=== PATIENT | female | born 1965 | race Hispanic/Latino ===

== ENCOUNTER 2019-05-27 15:19 | Emergency (ER) | payer SELFPAY ==
[2019-05-27] MEDS ORDERED: NA CHLORIDE 0.9% 1,000 ML ONE (16:28)
[2019-05-27] MEDS ORDERED: FAMOTIDINE 20 MG/2 ML VIAL IV ONE (16:28)
[2019-05-27] MEDS ORDERED: ONDANSETRON 4 MG/2 ML VIAL ONE (16:28)
[2019-05-27 16:49] LABS: Urine Blood TRACE (NEG); Urine Glucose 2+ (NEG); Urine Protein NEGATIVE (NEG); Urine Specific Gravity 1.025 (1.005-1.030)
[2019-05-27 16:51] LABS: Absolute Lymphocytes (CBC) 2.2 K/uL (0.7-4.9); Basophils % 0.3 % (0-1.3); Hematocrit 45.2 % (36.0-45.0); Lymphocytes % 29.1 % (15.3-44.8); MPV 9.9 fL (7.6-11.3)
[2019-05-27 17:04] LABS: Albumin 3.9 g/dL (3.4-5.0); Bilirubin Direct 0.2 mg/dL (0-0.2); Bilirubin Total 0.4 mg/dL (0.2-1.0); Potassium 4.1 mmol/L (3.5-5.1); Protein, Total 8.5 g/dL (6.4-8.2)
[2019-05-27 17:33] LABS: Urine Bacteria <20 /HPF (<20); Urine Culture Reflex Order NOT NEEDED; Urine RBC <5 /HPF (NONE SEEN)
[2019-05-27] MEDS ORDERED: INSULIN -REGULAR HUMAN 50 UNIT/0.5 ML ML ONE (17:59)
--- NOTE | 2019-05-27 18:02 | RAD REPORT ---
EXAM DESCRIPTION: CT - Stone Protocol - 05/27/2019 5:45 pm CLINICAL HISTORY: Abdominal pain. COMPARISON: None. TECHNIQUE: Computed axial tomography of the abdomen pelvis was obtained without oral or IV contrast. Lack of IV and oral contrast limits evaluation of solid organs, bowel, and vessels. Coronal reformat sudheer images were obtained and reviewed. All CT scans are performed using dose optimization technique as appropriate and may include automated exposure control or mA/KV adjustment according to patient size. FINDINGS: 1 millimeter right renal calculus. No hydronephrosis. No left renal calculus. An ureteral calculus is not noted. A bladder calculus is not present. Fatty liver. Mild hepatomegaly Spleen, pancreas and adrenals appear grossly normal There is no evidence of diverticulitis. Increased density in the appendix either represents contrast or appendicolith. The appendix is normal sized. No stranding within the adjacent fat Small umbilical hernia contains fat. Marked spondylosis L5-S1 Moderate amount of stool within the colon IMPRESSION: 1 millimeter nonobstructing right renal calculus Fatty liver. Mild hepatomegaly
--- NOTE | 2019-05-27 19:10 | ER ---
Nurse's Notes [facility] Name: Sonya Ames Age: 53 yrs Sex: Female : 1965 Arrival Date: 05/27/2019 Time: 15:22 Bed 19 Private MD: Diagnosis: Upper abdominal pain, unspecified;Hyperglycemia, unspecified Presentation: 05/27 15:32 Presenting complaint: Patient states: I have a hernia and I am having a lot of pain la1 that has been causing me a lot of pain for the last four weeks and I went to the clinic and my BGL was high. Transition of care: patient was not received from another setting of care. Onset of symptoms was May 27, 2019. Risk Assessment: Do you want to hurt yourself or someone else? Patient reports no desire to harm self or others. Initial Sepsis Screen: Does the patient meet any 2 criteria? No. Patient's initial sepsis screen is negative. Does the patient have a suspected source of infection? No. Patient's initial sepsis screen is negative. Care prior to arrival: None. 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 - wh Historical: - Allergies: 15:36 Codeine; la1 15:36 Vicodin; la1 15:36 tramadol; la1 - Home Meds: 15:39 metformin 1,000 mg Oral tab 1 tab 2 times per day [Active]; atorvastatin 20 mg oral tab la1 1 tab once daily [Active]; clonazepam 0.5 mg Oral tab 1 tab 3 times per day [Active]; dicyclomine 20 mg Oral tab 1 tab [Active]; Invokamet 50-500 mg oral tab 1 tab 2 times per day [Active]; lisinopril-hydrochlorothiazide 20-12.5 mg oral tab 1 tab once daily [Active]; meloxicam 15 mg oral tab 1 tab once daily [Active]; meloxicam 15 mg oral tab 1 tab once daily [Active]; metoclopramide HCl 5 mg Oral tab 1 tab once daily [Active]; omeprazole 20 mg Oral cpDR 1 cap once daily [Active]; Zofran (as hydrochloride) 4 mg Oral tab 1 tabs [Active]; piroxicam 20 mg Oral cap 1 cap once daily [Active]; doxepin 25 mg Oral cap 1 cap once daily [Active]; sucralfate 1 gram Oral tab 1 tab 4 times per day [Active]; - PMHx: 15:36 Diabetes - NIDDM; Hypertension; Hyperlipidemia; Migraines; la1 - Immunization history:: Adult Immunizations up to date. - Social history:: Smoking status: Patient/guardian denies using tobacco. - Ebola Screening: : No symptoms or risks identified at this time. Screenin:30 Abuse screen: Denies threats or abuse. Denies injuries from another. Nutritional wh screening: No deficits noted. Tuberculosis screening: No symptoms or risk factors identified. Fall Risk None identified. Assessment: 16:30 General: Appears in no apparent distress. uncomfortable, Behavior is calm, cooperative, wh appropriate for age. Pain: Complains of pain in epigastric area, right upper quadrant and left upper quadrant Pain does not radiate. Pain currently is 5 out of 10 on a pain scale. Quality of pain is described as aching. Neuro: Level of Consciousness is awake, alert, obeys commands, Oriented to person, place, time, situation, Appropriate for age. Cardiovascular: Heart tones S1 S2. Respiratory: Airway is patent Respiratory effort is even, unlabored, Respiratory pattern is regular, symmetrical, Breath sounds are clear bilaterally. GI: Abdomen is flat, non-distended, Bowel sounds present X 4 quads. Abd is soft Reports upper abdominal pain, nausea. : No signs and/or symptoms were reported regarding the genitourinary system. EENT: No signs and/or symptoms were reported regarding the EENT system. Derm: Skin is intact, is healthy with good turgor, Skin is pink, warm \T\ dry. normal. Musculoskeletal: Range of motion: intact in all extremities. 17:41 Reassessment: Patient appears in no apparent distress at this time. No changes from previously documented assessment. Patient and/or family updated on plan of care and expected duration. Pain level reassessed. Patient is alert, oriented x 3, equal unlabored respirations, skin warm/dry/pink. 18:35 Reassessment: Patient appears in no apparent distress at this time. No changes from previously documented assessment. Patient and/or family updated on plan of care and expected duration. Pain level reassessed. Patient is alert, oriented x 3, equal unlabored respirations, skin warm/dry/pink. Patient denies pain at this time. Patient states feeling better. 19:57 Reassessment: Patient appears in no apparent distress at this time. No changes from previously documented assessment. Patient and/or family updated on plan of care and expected duration. Pain level reassessed. Patient is alert, oriented x 3, equal unlabored respirations, skin warm/dry/pink. Patient denies pain at this time. Patient states feeling better. Vital Signs: 15:34 BP 146 / 88; Pulse 116; Resp 20; Temp 97.4; Pulse Ox 98% on R/A; Weight 85.73 kg; la1 Height 5 ft. 4 in. (162.56 cm); 17:00 BP 123 / 66; Pulse 93; Resp 16; Pulse Ox 99% on R/A; wh 18:00 BP 112 / 71; Pulse 90; Resp 18; Pulse Ox 99% on R/A; wh 19:00 BP 116 / 73; Pulse 97; Temp 18; Pulse Ox 91% ; wh 15:34 Body Mass Index 32.44 (85.73 kg, 162.56 cm) la1 ED Course: 15:22 Patient arrived in ED. rg4 15:30 Nels[facility] Edgar [facility]C [facility]. kb 15:30 Navdeep Arita MD is Attending Physician. kb 15:32 Triage completed. la1 15:33 Arm band placed on left wrist. la1 16:06 James Montes is Primary Nurse. wh 16:30 Inserted saline lock: 20 gauge in left antecubital area, using aseptic technique. Blood wh collected. 17:[address] via wheelchair. vm2 17:45 CT Stone Protocol In Process Unspecified. EDMS 19:59 Patient has correct armband on for positive identification. Placed in gown. Bed in low wh position. Call light in reach. Side rails up X 1. Pulse ox on. NIBP on. 20:00 No provider procedures requiring assistance completed. IV discontinued, intact, wh bleeding controlled, No redness/swelling at site. Administered Medications: 16:33 Drug: Zofran 4 mg Route: IVP; Site: right antecubital; 20:02 Follow up: Response: No adverse reaction 16:34 Drug: NS 0.9% 1000 ml Route: IV; Rate: 1000 ml; Site: right antecubital; 20:01 Follow up: IV Status: Completed infusion 16:34 Drug: Pepcid 20 mg Route: IVP; Site: right antecubital; 20:01 Follow up: Response: No adverse reaction 18:03 Drug: Insulin Regular Human 10 units {Co-Signature: rb1 (Melissa Tse RN).} Route: IVP; Site: right antecubital; 20:02 Follow up: Response: No adverse reaction Point of Care Testing: Blood Glucose: 15:36 Blood Glucose: 415 mg/dL; la1 19:00 Blood Glucose: 258 mg/dL; Ranges: Outcome: 19:08 Discharge ordered by . kb 20:00 Discharged to home ambulatory. 20:00 Condition: good 20:00 Condition: good 20:00 Discharge instructions given to patient, Instructed on discharge instructions, follow up and referral plans. medication usage, POC ABD Pain, Hyperglycemia Demonstrated understanding of instructions, follow-up care, medications, POC Prescriptions given X 2. 20:05 Patient left the ED. Signatures: Dispatcher [employer] EDMS Nelsy Edgar, FINANCE INTERN-C FINANCE INTERN-Mukesh Cedillo RN RN la1 Poly Langston rg4 Erlinda Rosario 2 James Montes Melissa Tse RN rb1 Corrections: (The following items were deleted from the chart) 15:33 15:32 Presenting complaint: Patient states: I have a hernia and I am having a lot of la1 pain and I went to the clinic and my BGL was high la1 19:59 16:30 GI: Abdomen is flat, non-distended, Bowel sounds present X 4 quads. Abd is soft wh and non tender X 4 quads. Reports upper abdominal pain, nausea, wh
--- NOTE | 2019-05-27 19:11 | EDPHYS ---
Physician Documentation [facility] Name: Sonya Ames Age: 53 yrs Sex: Female : 1965 Arrival Date: 05/27/2019 Time: 15: Bed 19 Private MD: ED Physician Navdeep Arita HPI: 05/27 16:07 This 53 yrs old Female presents to ER via Ambulatory with complaints of kb Abdominal Pain, High Blood Sugar. 16:07 The patient presents with abdominal pain in the upper abdomen. Onset: The kb symptoms/episode began/occurred 4 week(s) ago. The symptoms do not radiate. Associated signs and symptoms: Pertinent positives: vaginal discharge, vaginal itching, hernia, GERD. The symptoms are described as constant. Modifying factors: The symptoms are alleviated by nothing, the symptoms are aggravated by nothing. Severity of pain: At its worst the pain was mild moderate in the emergency department the pain is unchanged. The patient has experienced similar episodes in the past. The patient has not recently seen a physician. Pt reports she has had a hiatal hernia for 3 years and it causes pain and GERD occasionally, usually lasting about 2 weeks. This time it has lasted 4 weeks. Also reports high blood sugar for a long time, that she has not been able to control with diet. Reports she takes her metformin as prescribed. Pt went to the clinic in [place] today for these complaints, and also she needs a refill of clonazapam, and they sent her to the ER via EMS because of her high blood sugar. 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 - wh Historical: - Allergies: 15:36 Codeine; la1 15:36 Vicodin; la1 15:36 tramadol; la1 - Home Meds: 15:39 metformin 1,000 mg Oral tab 1 tab 2 times per day [Active]; atorvastatin 20 mg oral tab la1 1 tab once daily [Active]; clonazepam 0.5 mg Oral tab 1 tab 3 times per day [Active]; dicyclomine 20 mg Oral tab 1 tab [Active]; Invokamet 50-500 mg oral tab 1 tab 2 times per day [Active]; lisinopril-hydrochlorothiazide 20-12.5 mg oral tab 1 tab once daily [Active]; meloxicam 15 mg oral tab 1 tab once daily [Active]; meloxicam 15 mg oral tab 1 tab once daily [Active]; metoclopramide HCl 5 mg Oral tab 1 tab once daily [Active]; omeprazole 20 mg Oral cpDR 1 cap once daily [Active]; Zofran (as hydrochloride) 4 mg Oral tab 1 tabs [Active]; piroxicam 20 mg Oral cap 1 cap once daily [Active]; doxepin 25 mg Oral cap 1 cap once daily [Active]; sucralfate 1 gram Oral tab 1 tab 4 times per day [Active]; - PMHx: 15:36 Diabetes - NIDDM; Hypertension; Hyperlipidemia; Migraines; la1 - Immunization history:: Adult Immunizations up to date. - Social history:: Smoking status: Patient/guardian denies using tobacco. - Ebola Screening: : No symptoms or risks identified at this time. ROS: 16:07 Constitutional: Negative for fever, chills, and weight loss, ENT: Negative for injury, kb pain, and discharge, Neck: Negative for injury, pain, and swelling, Cardiovascular: Negative for chest pain, palpitations, and edema, Respiratory: Negative for shortness of breath, cough, wheezing, and pleuritic chest pain, Back: Negative for injury and pain, MS/Extremity: Negative for injury and deformity, Skin: Negative for injury, rash, and discoloration, Neuro: Negative for headache, weakness, numbness, tingling, and seizure. 16:07 Abdomen/GI: Positive for abdominal pain. 16:07 : Positive for vaginal discharge, vaginal itching. Exam: 16:07 Constitutional: This is a well developed, well nourished patient who is awake, alert, kb and in no acute distress. Head/Face: Normocephalic, atraumatic. ENT: Nares patent. No nasal discharge, no septal abnormalities noted. Tympanic membranes are normal and external auditory canals are clear. Oropharynx with no redness, swelling, or masses, exudates, or evidence of obstruction, uvula midline. Mucous membranes moist. Neck: Trachea midline, no thyromegaly or masses palpated, and no cervical lymphadenopathy. Supple, full range of motion without nuchal rigidity, or vertebral point tenderness. No Meningismus. Chest/axilla: Normal chest wall appearance and motion. Nontender with no deformity. No lesions are appreciated. Cardiovascular: Regular rate and rhythm with a normal S1 and S2. No gallops, murmurs, or rubs. Normal PMI, no JVD. No pulse deficits. Respiratory: Lungs have equal breath sounds bilaterally, clear to auscultation and percussion. No rales, rhonchi or wheezes noted. No increased work of breathing, no retractions or nasal flaring. Back: No spinal tenderness. No costovertebral tenderness. Full range of motion. Skin: Warm, dry with normal turgor. Normal color with no rashes, no lesions, and no evidence of cellulitis. MS/ Extremity: Pulses equal, no cyanosis. Neurovascular intact. Full, normal range of motion. Neuro: Awake and alert, GCS 15, oriented to person, place, time, and situation. Cranial nerves II-XII grossly intact. Motor strength 5/5 in all extremities. Sensory grossly intact. Cerebellar exam normal. Normal gait. Vital Signs: 15:34 BP 146 / 88; Pulse 116; Resp 20; Temp 97.4; Pulse Ox 98% on R/A; Weight 85.73 kg; la1 Height 5 ft. 4 in. (162.56 cm); 17:00 BP 123 / 66; Pulse 93; Resp 16; Pulse Ox 99% on R/A; wh 18:00 BP 112 / 71; Pulse 90; Resp 18; Pulse Ox 99% on R/A; wh 19:00 BP 116 / 73; Pulse 97; Temp 18; Pulse Ox 91% ; wh 15:34 Body Mass Index 32.44 (85.73 kg, 162.56 cm) la1 MDM: 15:40 Patient medically screened. kb 16:07 Data reviewed: vital signs, nurses notes. Data interpreted: Pulse oximetry: on room air kb is 98 %. Interpretation: normal. 18:59 Counseling: I had a detailed discussion with the patient and/or guardian regarding: the kb historical points, exam findings, and any diagnostic results supporting the discharge/admit diagnosis, lab results, radiology results, the need for outpatient follow up, a family practitioner, to return to the emergency department if symptoms worsen or persist or if there are any questions or concerns that arise at home. 05/27 15:42 Order name: Basic Metabolic Panel; Complete Time: 17:08 kb 05/27 15:42 Order name: CBC with Diff; Complete Time: 17:08 kb 05/27 15:42 Order name: Hepatic Function; Complete Time: 17:08 kb 05/27 15:42 Order name: Lipase; Complete Time: 17:08 kb 05/27 15:42 Order name: Urine Microscopic Only; Complete Time: 17:36 kb 05/27 16:28 Order name: Urine Dipstick--Ancillary (enter results); Complete Time: 16:51 eb 05/27 15:42 Order name: IV Saline Lock; Complete Time: 16:26 kb 05/27 15:42 Order name: Labs collected and sent; Complete Time: 16:26 kb 05/27 17:19 Order name: CT Stone Protocol; Complete Time: 18:11 kb 05/27 19:01 Order name: Glucose, Ancillary Testing; Complete Time: 19:02 EDMS 05/27 15:42 Order name: Urine Dipstick-Ancillary (obtain specimen); Complete Time: 16:26 kb Administered Medications: 16:33 Drug: Zofran 4 mg Route: IVP; Site: right antecubital; 20:02 Follow up: Response: No adverse reaction 16:34 Drug: NS 0.9% 1000 ml Route: IV; Rate: 1000 ml; Site: right antecubital; 20:01 Follow up: IV Status: Completed infusion 16:34 Drug: Pepcid 20 mg Route: IVP; Site: right antecubital; 20:01 Follow up: Response: No adverse reaction 18:03 Drug: Insulin Regular Human 10 units {Co-Signature: rb1 (Melissa Tse RN).} Route: IVP; Site: right antecubital; 20:02 Follow up: Response: No adverse reaction Point of Care Testing: Blood Glucose: 15:36 Blood Glucose: 415 mg/dL; la1 19:00 Blood Glucose: 258 mg/dL; Ranges: Critical Glucose Levels:Adult <50 mg/dl or >400 mg/dl <40 mg/dl or >180 mg/dl Disposition: 05/28 08:24 Co-signature as Attending Physician, Navdeep Arita MD I agree with the assessment and igor plan of care. Disposition: 05/27/19 19:08 Discharged to Home. Impression: Upper abdominal pain, unspecified, Hyperglycemia, unspecified. - Condition is Stable. - Discharge Instructions: Abdominal Pain, Adult, [id number], Hyperglycemia, [id number]. - Prescriptions for Bentyl 20 mg Oral Tablet - take 1 tablet by ORAL route every 6 hours As needed; 20 tablet. Pepcid 20 mg Oral Tablet - take 1 tablet by ORAL route once daily for 10 days; 10 tablet. - Medication Reconciliation Form, Thank You Letter, Antibiotic Education, Prescription Opioid Use form. - Follow up: Emergency Department; When: As needed; Reason: Worsening of condition. Follow up: Private Physician; When: 2 - 3 days; Reason: Recheck today's complaints, Continuance of care, Re-evaluation by your physician. Signatures: Dispatcher [employer] EDMS Nelsy Edgar, IMAGING SCIENCE PROFESSOR-C IMAGING SCIENCE PROFESSOR-Navdeep Rowan MD MD cha Attema, Lee, RN RN James Ivory Melissa Tse RN [facility] Corrections: (The following items were deleted from the chart) 05/27 20:05 19:08 05/27/2019 19:08 Discharged to Home. Impression: Upper abdominal pain, wh unspecified; Hyperglycemia, unspecified. Condition is Stable. Forms are Medication Reconciliation Form, Thank You Letter, Antibiotic Education, Prescription Opioid Use. Follow up: Emergency Department; When: As needed; Reason: Worsening of condition. Follow up: Private Physician; When: 2 - 3 days; Reason: Recheck today's complaints, Continuance of care, Re-evaluation by your physician. kb
== END 2019-05-27 20:05 | disposition home or self-care (01) ==
LOC: ER 15:19
DX: E11.65 Type 2 diabetes mellitus with hyperglycemia (principal); I10 Essential (primary) hypertension; E78.5 Hyperlipidemia, unspecified; Z88.5 Allergy status to narcotic agent
CPT/HCPCS: 36415; 74176; 76377; 80048; 80076; 81003; 81015; 82962; 83690; 85025; 96361; 96374; 96375; 99284; J2405; J7030

== ENCOUNTER 2021-09-11 08:23 | Inpatient (IN) | payer OTHER, SELFPAY ==
--- OUTSIDE RECORDS SUMMARY | 2021-09-11 08:26 | XMS REPORT | Continuity of Care Document ---
:1965 Author Organization [facility] t Address [address] [place] [address] Dr. Esquivel [address] [place] [address] Care Team Providers Name Role Phone Doctor Unassigned, Name Attending Clinician Unavailable Problems This patient has no known problems. Allergies, Adverse Reactions, Alerts Allergy Allergy Status Severity Reaction(s) Onset Inactive Treating Comm ents Source Name Type Date Date Clinician Jun Stern Active Unknown - 2014-10 Univ ers ty to See comments 11-13 ity of adverse 00:00: [place] reaction 00 [facility] Hydrocod Propensi Active 2014-10 Uni vers one ty to See comments 11-13 ity of adverse 00:00: [place] reaction 00 [facility] Penicill Propensi Active Unknown 2014-10 Uni vers ins ty to See comments 2 ity of adverse 00:00: [place] reaction 00 [facility] Social History Social Habit Start Date Stop Date Quantity Comments Source Sex Assigned At Uni versity [facility] Smoking Status Start Date Stop Date Source Unknown if ever smoked [facility] Medications Ordered Filled Start Stop Current Ordering Indication Dosage Frequency Signature Comments Components Source Medication Medication Date Date Medication? Clinician (SIG) Name Name paroxetine Yes TAKE ONE Uni vers (PAXIL) 10 8-10 TABLET BY ity of [place] 00:[place] [facility] Procedures Procedure Date / Time Performed Performing Clinician Nubia e EXTERNAL PROVIDER 2019-06-08 05:01:00 Doctor Unassigned, No [facility] [place] RECORDS Name Medical Branch Encounters Start End Encounter Admission Attending Care Care Encounter Source Date/Time Date/Time Type Type Clinicians Facility Department ID 2020-05-17 2020-05-17 Outpatient [facility] [id number] [place] 00:00:00 00:00:00 Health 2020-04-12 2020-04-12 Outpatient [facility] [id number] [place] 00:00:00 00:00:00 Health 2020-01-26 2020-01-26 Outpatient [facility] [id number] [place] 00:00:00 00:00:00 Health 2019-11-16 2019-11-16 Outpatient [facility] [id number] [place] 07:27:33 07:27:33 Health 2019-11-10 2019-11-10 Outpatient [facility] [id number] [place] 00:00:00 00:00:00 Health 2019-10-29 2019-10-29 Outpatient [facility] [id number] [place] 07:36:58 07:36:58 Health 2019-10-29 2019-10-29 Outpatient [facility] [id number] [place] 00:00:00 00:00:00 Health 2019-10-29 2019-10-29 Outpatient [facility] [id number] [place] 00:00:00 00:00:00 Health 2019-10-27 2019-10-27 Outpatient [facility] [id number] [place] 00:00:00 00:00:00 [facility] 2019-10-20 2019-10-20 Outpatient [facility] [id number] [place] 00:00:00 00:00:00 [facility] 2019-09-22 2019-09-22 Outpatient [facility] [id number] [place] 09:01:21 09:01:21 [facility] 2019-06-22 2019-06-22 Outpatient [facility] [id number] [place] 00:00:00 00:00:00 [facility] 2019-06-10 2019-06-10 Outpatient [facility] [id number] [place] 00:00:00 00:00:00 [facility] 2019-06-08 2019-06-08 Orders Doctor PAULINE [id number] Univers 00:00:00 00:00:00 Only Unassigned, MILAGROS [id number] ity of [place] [facility] [id number] [place] as [id number] [facility] 009 Branch 2019-06-07 2019-06-07 Outpatient [facility] [id number] [place] 00:00:00 00:00:00 [facility] 2019-06-03 2019-06-03 Outpatient [facility] [id number] [place] 00:00:00 00:00:00 [facility] 2019-06-03 2019-06-03 Outpatient [facility] [id number] [place] 00:00:00 00:00:00 Health 2019-05-26 2019-05-26 Outpatient [facility] [id number] [place] 00:00:00 00:00:00 [facility] 2019-05-24 2019-05-24 Outpatient [facility] [id number] [place] 00:00:00 00:00:00 [facility] 2019-05-21 2019-05-21 Outpatient [facility] [id number] [place] 14:40:19 14:40:19 [facility] 2019-05-21 2019-05-21 Outpatient [facility] [id number] [place] 00:00:00 00:00:00 [facility] 2019-05-21 2019-05-21 Outpatient [facility] [id number] [place] 00:00:00 00:00:00 [facility] 2019-05-21 2019-05-21 Outpatient [facility] [id number] [place] 00:00:00 00:00:00 [facility] 2019-05-21 2019-05-21 Outpatient [facility] [id number] [place] 00:00:00 00:00:00 [facility] 2019-05-20 2019-05-20 Outpatient [facility] [id number] [place] 15:33:18 15:33:18 [facility] 2019-05-20 2019-05-20 Outpatient [facility] [id number] [place] 14:24:58 14:24:58 [facility] 2019-05-20 2019-05-20 Outpatient [facility] [id number] [place] 14:02:09 14:02:09 [facility] 2019-05-20 2019-05-20 Outpatient [facility] [id number] [place] 00:00:00 00:00:00 [facility] 2019-05-20 2019-05-20 Outpatient [facility] [id number] [place] 00:00:00 00:00:00 [facility] 2019-05-19 2019-05-19 Outpatient [facility] [id number] [place] 00:00:00 00:00:00 [facility] 2019-05-19 2019-05-19 Outpatient [facility] [id number] [place] 00:00:00 00:00:00 [facility] 2019-05-13 2019-05-13 Outpatient [facility] [id number] [place] 15:04:47 15:04:47 [facility] 2019-05-06 2019-05-06 Outpatient [facility] [id number] [place] 00:00:00 00:00:00 [facility] 2019-05-05 2019-05-05 Outpatient [facility] [id number] [place] 09:22:40 09:22:40 [facility] 2019-05-03 2019-05-03 Emergency [facility] [id number] [place] 01:42:35 01:42:35 [facility] 2019-05-02 2019-05-02 Emergency [facility] [id number] [place] 19:52:20 19:52:20 [facility] 2019-04-19 2019-04-19 Outpatient [facility] [id number] [place] 12:49:16 12:49:16 [facility] 2019-04-19 2019-04-19 Outpatient [facility] [id number] [place] 12:09:45 12:09:45 [facility] 2019-04-19 2019-04-19 Outpatient [facility] [id number] [place] 11:18:49 11:18:49 [facility] 2019-04-19 2019-04-19 Outpatient [facility] [id number] [place] 10:14:27 10:14:27 [facility] 2019-04-19 2019-04-19 Outpatient [facility] [id number] [place] 00:00:00 00:00:00 [facility] 2019-04-19 2019-04-19 Outpatient [facility] [id number] [place] 00:00:00 00:00:00 [facility] 2018-06-22 2018-06-22 Outpatient [facility] [id number] [place] 00:00:00 00:00:00 [facility] 2018-06-22 2018-06-22 Outpatient [facility] [id number] [place] 00:00:00 00:00:00 [facility] 2018-06-19 2018-06-19 Outpatient [facility] [id number] [place] 13:03:23 13:03:23 [facility] 2018-06-19 2018-06-19 Outpatient [facility] [id number] [place] 00:00:00 00:00:00 [facility] 2018-06-19 2018-06-19 Outpatient [facility] [id number] [place] 00:00:00 00:00:00 [facility] 2018-06-11 2018-06-11 Outpatient [facility] [id number] [place] 00:00:00 00:00:00 [facility] 2018-06-10 2018-06-10 Outpatient [facility] [id number] [place] 00:00:00 00:00:00 [facility] 2018-06-10 2018-06-10 Outpatient [facility] [id number] [place] 00:00:00 00:00:00 [facility] 2018-06-08 2018-06-08 Outpatient [facility] [id number] [place] 00:00:00 00:00:00 [facility] 2018-06-05 2018-06-05 Outpatient [facility] [id number] [place] 11:52:24 11:52:24 [facility] 2018-06-05 2018-06-05 Outpatient [facility] [id number] [place] 11:36:28 11:36:28 [facility] 2018-06-05 2018-06-05 Outpatient [facility] [id number] [place] 11:16:17 11:16:17 [facility] 2018-06-05 2018-06-05 Outpatient [facility] [id number] [place] 10:37:43 10:37:43 [facility] 2018-06-05 2018-06-05 Outpatient [facility] [id number] [place] 08:49:22 08:49:22 [facility] 2018-06-05 2018-06-05 Outpatient [facility] [id number] [place] 00:00:00 00:00:00 [facility] 2018-05-20 2018-05-20 Outpatient [facility] [id number] [place] 00:00:00 00:00:00 [facility] 2018-05-13 2018-05-13 Outpatient [facility] [id number] [place] 00:00:00 00:00:00 [facility] 2018-05-13 2018-05-13 Outpatient [facility] [id number] [place] 00:00:00 00:00:00 [facility] 2018-05-13 2018-05-13 Outpatient [facility] [id number] [place] 00:00:00 00:00:00 [facility] 2018-05-13 2018-05-13 Outpatient [facility] [id number] [place] 00:00:00 00:00:00 [facility] 2018-05-13 2018-05-13 Outpatient [facility] [id number] [place] 00:00:00 00:00:00 [facility] 2018-04-22 2018-04-22 Outpatient [facility] [id number] [place] 12:31:20 12:31:20 [facility] 2018-04-22 2018-04-22 Outpatient [facility] [id number] [place] 10:45:31 10:45:31 [facility] 2018-04-22 2018-04-22 Outpatient [facility] [id number] [place] 00:00:00 00:00:00 [facility] 2017-09-29 2017-09-29 Outpatient [facility] [id number] [place] 00:00:00 00:00:00 [facility] 2017-09-29 2017-09-29 Outpatient [facility] [id number] [place] 00:00:00 00:00:00 [facility] 2017-09-19 2017-09-19 Outpatient [facility] [id number] [place] 00:00:00 00:00:00 [facility] 2017-09-12 2017-09-12 Outpatient [facility] [id number] [place] 00:00:00 00:00:00 Health 2017-09-10 2017-09-10 Outpatient [facility] [id number] [place] 15:10:31 15:10:31 Health 2017-09-10 2017-09-10 Outpatient [facility] [id number] [place] 13:58:23 13:58:23 Health 2017-08-01 2017-08-01 Outpatient [facility] [id number] [place] 00:00:00 00:00:00 [facility] 2017-07-15 2017-07-15 Outpatient [facility] [id number] [place] 00:00:00 00:00:00 [facility] 2017-07-11 2017-07-11 Outpatient [facility] [id number] [place] 00:00:00 00:00:00 [facility] 2017-07-01 2017-07-01 Outpatient [facility] [id number] [place] 13:02:14 13:02:14 [facility] 2017-07-01 2017-07-01 Outpatient [facility] [id number] [place] 11:47:18 11:47:18 [facility] 2017-06-30 2017-06-30 Outpatient [facility] [id number] [place] 07:49:07 07:49:07 [facility] 2017-06-04 2017-06-04 Outpatient [facility] [id number] [place] 10:05:56 10:05:56 [facility] 2017-05-06 2017-05-06 Emergency [facility] [id number] [place] 20:07:21 20:07:21 Health 2017-05-05 2017-05-05 Outpatient [facility] [id number] [place] 14:06:57 14:06:57 Health 2017-05-05 2017-05-05 Outpatient [facility] [id number] [place] 12:56:21 12:56:21 Health 2017-04-25 2017-04-25 Outpatient [facility] [id number] [place] 00:00:00 00:00:00 Health Results This patient has no known results.
[2021-09-11 12:13] LABS: Absolute Lymphocytes (CBC) 1.8 K/uL (0.7-4.9); Basophils % 0.3 % (0-1.3); Hematocrit 35.7 % (36.0-45.0); Lymphocytes % 9.6 % (15.3-44.8); RBC Red Blood Cell Count 4.02 M/uL (3.86-4.86)
--- NOTE | 2021-09-11 12:23 | RAD REPORT ---
EXAM DESCRIPTION: RAD - Knee Left 3 View - 09/11/2021 11:58 am CLINICAL HISTORY: PAIN COMPARISON: No comparisons FINDINGS: Moderate tricompartmental osteoarthritis is present, greatest in the medial joint compartm ent. No acute fracture or dislocation seen. Moderate suprapatellar joint effusion present.
[2021-09-11] MEDS ORDERED: KETOROLAC 30 MG/ML INJ ONE (12:25)
[2021-09-11] MEDS ORDERED: MORPHINE 4 MG/ML SYR ONE (12:25)
[2021-09-11] MEDS ORDERED: NA CHLORIDE 0.9% 1,000 ML ONE ×2 (12:25→13:16)
[2021-09-11] MEDS ORDERED: ONDANSETRON 4 MG/2 ML VIAL ONE (12:25)
[2021-09-11] MEDS ORDERED: LIDOCAINE 1% W/EPI 1:100,000 MDV 20 ML VIAL ONE (12:26)
[2021-09-11 12:28] LABS: Albumin 2.5 g/dL (3.4-5.0); Bilirubin Total 0.2 mg/dL (0.2-1.0); Potassium 4.3 mmol/L (3.5-5.1); Protein, Total 7.1 g/dL (6.4-8.2)
[2021-09-11] MEDS ORDERED: INSULIN -REGULAR HUMAN 50 UNIT/0.5 ML ML ONE (13:09)
[2021-09-11] MEDS ORDERED: predniSONE 20 MG TAB ONE (13:11)
[2021-09-11] MEDS ORDERED: METHYLPREDNISOLONE 125 MG INJ ONE (13:11)
[2021-09-11] MEDS ORDERED: CEFAZOLIN/NS 1gm 1 GM/50 ML BAG IV ONE (13:15)
--- NOTE | 2021-09-11 14:31 | ER ---
Nurse's Notes [facility]ly [facility] Name: Sonya Ames Age: 55 yrs Sex: Female : 1965 Arrival Date: 09/11/2021 Time: 08:28 Bed 11 Private MD: Diagnosis: Pain in left knee;Effusion, left knee;Elevated white blood cell count;Type 2 diabetes mellitus with hyperglycemia;Rheumatoid arthritis, unspecified Presentation: 09/11 08:51 Chief complaint: Patient states: HX of RA. Pt c/o L knee pain and swelling. Pt is ss believes that they may need to drain it again. Pt was seen at [place] [facility] just prior to arrival and had a CT but states, "they can't do anything there.". Coronavirus screen: Client denies travel out of the [place] in the last 14 days. Ebola Screen: Patient denies exposure to infectious person. Patient denies travel to an Ebola-affected area in the 21 days before illness onset. Initial Sepsis Screen: Does the patient meet any 2 criteria? No. Patient's initial sepsis screen is negative. Does the patient have a suspected source of infection? No. Patient's initial sepsis screen is negative. Risk Assessment: Do you want to hurt yourself or someone else? Patient reports no desire to harm self or others. Onset of symptoms was September 09, 2021. 08:51 Method Of Arrival: Ambulatory 08:51 Acuity: MIA 4 ss Historical: - Allergies: 08:53 Codeine; ss 08:53 tramadol; ss 08:53 Vicodin; ss - PMHx: 08:53 Diabetes - NIDDM; Hyperlipidemia; Hypertension; Migraines; Rheumatoid arthritis; ss - Immunization history:: Client reports receiving the 2nd dose of the Covid vaccine. - Social history:: Smoking status: Patient denies any tobacco usage or history of. - Family history:: not pertinent. Screenin:22 Abuse screen: Denies threats or abuse. Denies injuries from another. Nutritional ss screening: No deficits noted. Tuberculosis screening: Never had TB. Fall Risk None identified. Assessment: 10:23 General: Appears in no apparent distress. comfortable, Behavior is calm, cooperative, ss Denies fever, feeling ill, fatigue, chills. Neuro: Level of Consciousness is awake, alert, obeys commands, Oriented to person, place, time, situation, Assembler Fitter are equal bilaterally Speech is normal, Facial symmetry appears normal, Pupils are PERRLA. Cardiovascular: Capillary refill < 3 seconds is brisk in bilateral fingers. Respiratory: Airway is patent Respiratory effort is even, unlabored, Respiratory pattern is regular, symmetrical. Derm: Skin is intact, is healthy with good turgor, Skin is pink, warm \\T\\ dry. normal. Musculoskeletal: Swelling present in left knee. 11:30 Reassessment: Patient appears in no apparent distress at this time. No changes from ss previously documented assessment. 13:22 Reassessment: Patient appears in no apparent distress at this time. Patient and/or ss family updated on plan of care and expected duration. Pain level reassessed. Patient is alert, oriented x 3, equal unlabored respirations, skin warm/dry/pink. Patient denies pain at this time. Patient states feeling better. Patient states symptoms have improved. Pain: Complains of pain in left knee Pain currently is 0 out of 10 on a pain scale. 14:30 Reassessment: Patient appears in no apparent distress at this time. resting with eyes ss closed. RR remain even and unlabored. 15:30 Reassessment: Patient appears in no apparent distress at this time. Patient is alert, ss oriented x 3, equal unlabored respirations, skin warm/dry/pink. GI: No signs and/or symptoms were reported involving the gastrointestinal system. 17:08 Reassessment: Attempted to call report at this time. Receiving nurse unavailable. Will ss call back per desk paralegal legal secretary. 18:17 Reassessment: attempted to call report. Receiving nurse unavailable. ss 20:09 General: Appears in no apparent distress. comfortable, Finishing [employer] Meal \\T\\ large cc4 milk shake; AccuChek glucose after meal 493 mg/dl with report telephoned to Victoria Richardson RN with instructions to use Taboola orders once received to floor; charge nurse ANUM Lo notified; # 20 g saline lock intact right AC; VSS; NAD.. 20:15 Reassessment: To # 225 via w/c; NAD. cc4 Vital Signs: 08:51 BP 125 / 69; Pulse 101; Resp 15; Temp 97.5(TE); Pulse Ox 96% on R/A; Weight 85.28 kg; ss Height 5 ft. 4 in. (162.56 cm); Pain 10/10; 12:21 BP 98 / 56; Pulse 94; Resp 17; Temp 98(O); Pulse Ox 97% on R/A; ss 13:21 BP 102 / 69; Pulse 90; Resp 14; Pulse Ox 98% on R/A; ss 19:45 BP 104 / 70; Pulse 97; Resp 20 S; Temp 97.7(O); Pulse Ox 98% on R/A; cc4 08:51 Body Mass Index 32.27 (85.28 kg, 162.56 cm) ED Course: 08:28 Patient arrived in ED. ds1 08:53 Triage completed. ss 08:53 Arm band placed on right wrist. ss 10:46 Navdeep Arita MD is Attending Physician. igor 11:58 Knee Left 3 View XRAY In Process Unspecified. EDMS 12:07 Lab(s) recollected, by me, sent to lab. Inserted saline lock: 20 gauge in right mh5 antecubital area, using aseptic technique. Blood collected. 12:08 Patient has correct armband on for positive identification. Placed in gown. Bed in low mh5 position. Call light in reach. Side rails up X 1. Warm blanket given. Pulse ox on. NIBP on. 12:21 Sandra Hurley, ANUM is Primary Nurse. 14:31 Emiliano Zamora MD is Referral Physician. igor 14:34 Williams Valverde is Hospitalizing Provider. igor 18:18 No provider procedures requiring assistance completed. Patient admitted, IV remains in ss place. Administered Medications: 12:28 Drug: NS 0.9% 1000 ml Route: IV; Rate: 1 bolus; Site: right antecubital; ss 13:36 Follow up: IV Status: Completed infusion; IV Intake: 1000ml ss 12:30 Drug: Zofran (Ondansetron) 4 mg Route: IVP; Site: right antecubital; ss 13:36 Follow up: Response: No adverse reaction 12:32 Drug: Ketorolac 30 mg Route: IVP; Site: right antecubital; ss 13:00 Follow up: Response: No adverse reaction; Pain is decreased ss 12:34 Drug: morphine 4 mg Route: IVP; Site: right antecubital; ss 12:50 Follow up: Response: No adverse reaction; Pain is decreased ss 13:18 Drug: Insulin Regular Human 10 units {Co-Signature: vg1 (Erlinda Langston RN).} Route: ss IVP; Site: right antecubital; 13:18 Drug: SOLU-Medrol (methylPrednisoLONE) 125 mg Route: IVP; Site: right antecubital; ss 13:49 Follow up: Response: No adverse reaction ss 13:18 Drug: predniSONE 20 mg Route: PO; ss 13:49 Follow up: Response: No adverse reaction ss 13:19 Drug: NS 0.9% 1000 ml Route: IV; Rate: 125 ml/hr; Site: right antecubital; ss 17:10 Follow up: IV Status: Infusion continued upon admission ss 13:50 Drug: Ancef (cefazolin) 1 grams Route: IVPB; Site: right antecubital; ss 15:16 Drug: levofloxacin 750 mg Volume: 150 ml; Route: IVPB; Infused Over: 90 mins; Site: ss right antecubital; 17:00 Follow up: IV Status: Completed infusion ss 17:10 Drug: vancoMYCIN 1 grams Route: IVPB; Infused Over: 2 hrs; Site: right antecubital; ss 17:11 Follow up: IV Status: Infusion continued upon admission ss Intake: 13:36 IV: 1000ml; Total: 1000ml. Outcome: 14:31 Discharge ordered by . igor 14:38 Decision to Hospitalize by Provider. [facility] 17:08 Condition: improved ss 17:08 Instructed on the need for admit. 20:23 Patient left the ED. mw2 Signatures: Dispatcher [employer] Navdeep Bowen MD MD cha Sanford, Demi ds1 Sandra Hurley RN RN Marjorie Dee Rohit Bishop mw2 Agatha Rayo RN RN cc4 Erlinda Langston RN vg1 Corrections: (The following items were deleted from the chart) 12:55 12:21 BP 98 / 56; Pulse 94bpm; Resp 17bpm; Pulse Ox 97% RA; Temp 9.8F Oral; mh5
--- NOTE | 2021-09-11 14:32 | EDPHYS ---
Physician Documentation [facility] Name: Sonya Ames Age: 55 yrs Sex: Female : 1965 Arrival Date: 09/11/2021 Time: 08:28 Bed 11 Private MD: ED Physician Navdeep Arita HPI: 09/11 12:08 This 55 yrs old Female presents to ER via Ambulatory with complaints of Knee igor Swelling. 12:08 The patient presents with decreased range of motion, pain, that is acute. The igor complaints affect the left knee. Context: The problem was sustained at an unknown site. Onset: The symptoms/episode began/occurred 5 day(s) ago. Modifying factors: The symptoms are alleviated by nothing. elevating leg, remaining still. Associated signs and symptoms: The patient has no apparent associated signs or symptoms. Severity of symptoms: At their worst the symptoms were moderate, in the emergency department the symptoms are unchanged. The patient has not experienced similar symptoms in the past. Historical: - Allergies: 08:53 Codeine; ss 08:53 tramadol; ss 08:53 Vicodin; ss - PMHx: 08:53 Diabetes - NIDDM; Hyperlipidemia; Hypertension; Migraines; Rheumatoid arthritis; ss - Immunization history:: Client reports receiving the 2nd dose of the Covid vaccine. - Social history:: Smoking status: Patient denies any tobacco usage or history of. - Family history:: not pertinent. ROS: 12:08 Constitutional: Negative for fever, chills, and weight loss, Eyes: Negative for injury, igor pain, redness, and discharge, ENT: Negative for injury, pain, and discharge, Neck: Negative for injury, pain, and swelling, Cardiovascular: Negative for chest pain, palpitations, and edema, Respiratory: Negative for shortness of breath, cough, wheezing, and pleuritic chest pain, Abdomen/GI: Negative for abdominal pain, nausea, vomiting, diarrhea, and constipation, Back: Negative for injury and pain, : Negative for injury, bleeding, discharge, and swelling, Skin: Negative for injury, rash, and discoloration, Neuro: Negative for headache, weakness, numbness, tingling, and seizure, Psych: Negative for depression, anxiety, suicide ideation, homicidal ideation, and hallucinations, Allergy/Immunology: Negative for hives, rash, and allergies, Endocrine: Negative for neck swelling, polydipsia, polyuria, polyphagia, and marked weight changes, Hematologic/Lymphatic: Negative for swollen nodes, abnormal bleeding, and unusual bruising. 12:08 MS/extremity: Positive for decreased range of motion, pain, swelling, tenderness, of the left knee. Exam: 12:08 Constitutional: This is a well developed, well nourished patient who is awake, alert, igor and in no acute distress. Head/Face: Normocephalic, atraumatic. Eyes: Pupils equal round and reactive to light, extra-ocular motions intact. Lids and lashes normal. Conjunctiva and sclera are non-icteric and not injected. Cornea within normal limits. Periorbital areas with no swelling, redness, or edema. ENT: Nares patent. No nasal discharge, no septal abnormalities noted. Tympanic membranes are normal and external auditory canals are clear. Oropharynx with no redness, swelling, or masses, exudates, or evidence of obstruction, uvula midline. Mucous membranes moist. Neck: Trachea midline, no thyromegaly or masses palpated, and no cervical lymphadenopathy. Supple, full range of motion without nuchal rigidity, or vertebral point tenderness. No Meningismus. Chest/axilla: Normal chest wall appearance and motion. Nontender with no deformity. No lesions are appreciated. Cardiovascular: Regular rate and rhythm with a normal S1 and S2. No gallops, murmurs, or rubs. Normal PMI, no JVD. No pulse deficits. Respiratory: Lungs have equal breath sounds bilaterally, clear to auscultation and percussion. No rales, rhonchi or wheezes noted. No increased work of breathing, no retractions or nasal flaring. Abdomen/GI: Soft, non-tender, with normal bowel sounds. No distension or tympany. No guarding or rebound. No evidence of tenderness throughout. Back: No spinal tenderness. No costovertebral tenderness. Full range of motion. Female : Normal external genitalia. Skin: Warm, dry with normal turgor. Normal color with no rashes, no lesions, and no evidence of cellulitis. Neuro: Awake and alert, GCS 15, oriented to person, place, time, and situation. Cranial nerves II-XII grossly intact. Motor strength 5/5 in all extremities. Sensory grossly intact. Cerebellar exam normal. Normal gait. Psych: Awake, alert, with orientation to person, place and time. Behavior, mood, and affect are within normal limits. 12:08 Musculoskeletal/extremity: ROM: limited active range of motion due to pain, limited passive range of motion due to pain, Circulation is intact in all extremities. Sensation intact. Compartment Syndrome exam of affected extremity: is normal. DVT Exam: negative Homans' sign noted on exam, no appreciated bluish discoloration, no erythema, no increased warmth, pain, swelling, tenderness. Vital Signs: 08:51 BP 125 / 69; Pulse 101; Resp 15; Temp 97.5(TE); Pulse Ox 96% on R/A; Weight 85.28 kg; ss Height 5 ft. 4 in. (162.56 cm); Pain 10/10; 12:21 BP 98 / 56; Pulse 94; Resp 17; Temp 98(O); Pulse Ox 97% on R/A; ss 13:21 BP 102 / 69; Pulse 90; Resp 14; Pulse Ox 98% on R/A; ss 19:45 BP 104 / 70; Pulse 97; Resp 20 S; Temp 97.7(O); Pulse Ox 98% on R/A; cc4 08:51 Body Mass Index 32.27 (85.28 kg, 162.56 cm) Procedures: 13:03 Joint Treatment: Aspiration of left knee using 18 gauge needle, Removed yellow fluid, igor Dressed with band aid, Patient tolerated well. MDM: 10:46 Patient medically screened. igor 12:10 Differential diagnosis: closed fracture, contusion, tendonitis. Data reviewed: vital igor signs, nurses notes, lab test result(s), radiologic studies, plain films. Data interpreted: laboratory monitor: rate is 101 beats/min. Test interpretation: by ED physician or midlevel provider: plain radiologic studies. Counseling: I had a detailed discussion with the patient and/or guardian regarding: the historical points, exam findings, and any diagnostic results supporting the discharge/admit diagnosis, lab results. 09/11 11:31 Order name: CBC with Diff; Complete Time: 12:51 [facility] 09/11 11:31 Order name: Comprehensive Metabolic Panel; Complete Time: 12:51 [facility] 09/11 12:51 Order name: Uric Acid; Complete Time: 13:58 [facility] 09/11 13:08 Order name: LAB Add On bd 09/11 13:17 Order name: Lactic Dehydrogenase; Complete Time: 13:58 EDMS 09/11 11:31 Order name: Knee Left 3 View XRAY; Complete Time: 12:51 igor 09/11 14:17 Order name: Body Fluid Cell Count; Complete Time: 17:57 EDMS 09/11 14:17 Order name: Body Fluid Crystals; Complete Time: 14:50 EDMS 09/11 14:17 Order name: Gram Stain EDMS 09/11 15:16 Order name: Miscellaneous Test Lab; Complete Time: 17:57 EDMS 09/11 15:29 Order name: SARS-COV-2 RT PCR; Complete Time: 17:57 EDMS 09/11 13:08 Order name: Cristiano wrap-joint; Complete Time: 13:50 igor Administered Medications: 12:28 Drug: NS 0.9% 1000 ml Route: IV; Rate: 1 bolus; Site: right antecubital; ss 13:36 Follow up: IV Status: Completed infusion; IV Intake: 1000ml ss 12:30 Drug: Zofran (Ondansetron) 4 mg Route: IVP; Site: right antecubital; ss 13:36 Follow up: Response: No adverse reaction ss 12:32 Drug: Ketorolac 30 mg Route: IVP; Site: right antecubital; ss 13:00 Follow up: Response: No adverse reaction; Pain is decreased ss 12:34 Drug: morphine 4 mg Route: IVP; Site: right antecubital; ss 12:50 Follow up: Response: No adverse reaction; Pain is decreased ss 13:18 Drug: Insulin Regular Human 10 units {Co-Signature: vg1 (Erlinda Langston RN).} Route: ss IVP; Site: right antecubital; 13:18 Drug: SOLU-Medrol (methylPrednisoLONE) 125 mg Route: IVP; Site: right antecubital; ss 13:49 Follow up: Response: No adverse reaction ss 13:18 Drug: predniSONE 20 mg Route: PO; ss 13:49 Follow up: Response: No adverse reaction ss 13:19 Drug: NS 0.9% 1000 ml Route: IV; Rate: 125 ml/hr; Site: right antecubital; ss 17:10 Follow up: IV Status: Infusion continued upon admission ss 13:50 Drug: Ancef (cefazolin) 1 grams Route: IVPB; Site: right antecubital; ss 15:16 Drug: levofloxacin 750 mg Volume: 150 ml; Route: IVPB; Infused Over: 90 mins; Site: ss right antecubital; 17:00 Follow up: IV Status: Completed infusion ss 17:10 Drug: vancoMYCIN 1 grams Route: IVPB; Infused Over: 2 hrs; Site: right antecubital; ss 17:11 Follow up: IV Status: Infusion continued upon admission ss Disposition Summary: 09/11/21 14:38 Hospitalization Ordered Hospitalization Status: Inpatient Admission igor Provider: Williams Valverde cha Location: Telemetry/MedSurg (Inpatient)(09/11/21 14:38) igor Condition: Stable(09/11/21 14:38) igor Problem: new(09/11/21 14:38) igor Symptoms: have improved(09/11/21 14:38) igor Bed/Room Type: Standard igor Room Assignment: 225(09/11/21 16:25) bd Diagnosis - Pain in left knee igor - Effusion, left knee(09/11/21 14:38) igor - Elevated white blood cell count(09/11/21 14:38) igor - Type 2 diabetes mellitus with hyperglycemia(09/11/21 14:38) igor - Rheumatoid arthritis, unspecified(09/11/21 15:06) igor Forms: - Medication Reconciliation Form igor - SBAR form igor Signatures: Dispatcher [employer] EDMS Fatuma Harman Corey, MD MD cha Smirch, Shelby, RN RN ss Mukesh Latif, BRAILLE TRANSLATOR-C BRAILLE TRANSLATOR-Cla1 Erlinda Langston RN vg1 Corrections: (The following items were deleted from the chart) 13:16 13:15 Lactic Dehydrogenase ordered. EDMS EDMS 13:18 13:08 Labs - recollect needed ordered. bd ss 13:50 13:08 Crutches ordered. igor ss 14:33 14:31 Home igor igor 14:33 14:31 new igor igor 14:33 14:31 have improved igor igor 14:33 14:31 Stable igor igor 14:33 14:31 Type 2 diabetes mellitus with hyperglycemia igor igor 14:33 14:31 Effusion, left knee igor igor 14:33 14:31 Rheumatoid arthritis, unspecified igor igor 14:33 14:31 Elevated white blood cell count igor igor 15:29 14:40 CORONAVIRUS+BRZ ordered. EDMS EDMS 16:25 14:38 formerly [facility], [facility]
[2021-09-11 14:39] LABS: Appearance TURBID (CLEAR); Body Fluid Source SYNOVIAL; Body Fluid WBC 327 /mm^3
[2021-09-11] MEDS ORDERED: Levofloxacin 750mg IV 750 MG/150 ML BAG IV ONE (14:54)
[2021-09-11] MEDS ORDERED: VANCOMYCIN/NS 1 gm 1 GM/250 ML BAG IV ONE (15:00)
[2021-09-11 15:46] LABS: Color of fluid Yellow (COLORLESS)
--- NOTE | 2021-09-11 16:25 | P.HP ---
Certification for Inpatient Patient admitted to: Observation With expected LOS: <2 Midnights Practitioner: I am a practitioner with admitting privileges, knowledge of patient current condition, hospital course, and medical plan of care. Services: Services provided to patient in accordance with Admission requirements found in Title 42 Section 412.3 of the Code of Federal Regulations Patient History Date of Service: 09/11/21 Reason for admission: Swollen left knee History of Present Illness: 55-year-old woman with a history of diabetes mellitus on insulin therapy, rheumatoid arthritis presented to the emergency department with a complaint of painful swollen left knee. Patient reports similar situations in the past and have had her left knee tapped for joint fluid about 3 years ago. She denied any fever. ED provider did a joint tap, noted to be turbid with numerous WBC. Septic arthritis suspected. Orthopedic surgeon-Dr. Killian informed recommended admission for IV antibiotics. Patient has leukocytosis. She does not meet criteria for sepsis. She is admitted for further management. Allergies acetaminophen [From Vicodin] Allergy (Verified 09/11/21 13:03) UNK codeine Allergy (Verified 09/11/21 13:03) UNK hydrocodone [From Vicodin] Allergy (Verified 09/11/21 13:03) UNK tramadol Allergy (Verified 09/11/21 13:03) UNK - Past Medical/Surgical History -: Diabetes mellitus type 2 -: Hypertension -: Rheumatoid arthritis -: section -: Lumbar spinal surgery - Family History Mother -: Diabetes Father -: Heart disease - Social History Smoking Status: Never smoker Alcohol use: Yes CD- Drugs: No Place of Residence: Home Review of Systems Other: Except as documented, all other systems reviewed and negative. Physical Examination - Physical Exam General: Alert, In no apparent distress, Oriented x3 HEENT: Atraumatic, PERRLA, Mucous membr. moist/pink, EOMI, Sclerae nonicteric Neck: Supple, JVD not distended, No Thyromegaly Respiratory: Clear to auscultation bilaterally, Normal air movement Cardiovascular: No edema, Regular rate/rhythm, Normal S1 S2, No murmurs Capillary refill: <2 Seconds Gastrointestinal: Normal bowel sounds, Soft and benign, Non-distended, No tenderness Musculoskeletal: No swelling, No tenderness, Other (No reduced ROM) Integumentary: No rashes, No erythema Neurological: Normal speech, Normal strength at 5/5 x4 extr, Cranial nerves 3-12 intact Lymphatics: No axilla or inguinal lymphadenopathy - Studies Laboratory Data (last 24 hrs) 09/11/21 12:05: Uric Acid 4.7 09/11/21 12:05: Sodium 138, Potassium 4.3, BUN 23 H, Creatinine 1.04, Glucose 363 H, Total Bilirubin 0.2, AST 10 L, ALT 26, Alkaline Phosphatase 90 09/11/21 12:05: WBC 18.90 H, Hgb 11.6 L, Hct 35.7 L, Plt Count 392 Assessment and Plan - Problems (Diagnosis) (1) Septic arthritis Current Visit: Yes Status: Acute (2) Rheumatoid arthritis Current Visit: Yes Status: Acute (3) Diabetes mellitus type 2 in obese Current Visit: Yes Status: Acute (4) Hypertension Current Visit: Yes Status: Acute (5) Leukocytosis Current Visit: Yes Status: Acute - Plan Admitted to the medical floor. Joint fluid is turbid with numerous WBC. Infection suspected Start patient on broad-spectrum antibiotics-vancomycin and Levaquin. Pain management with IV morphine and Percocet. Patient reports nausea with codeine which is not a true allergy. Orthopedic surgery consulted. Joint fluid sent for Gram stain and culture. Obtain blood culture. Insulin sliding scale for glucose management. Resume patient home long-acting insulin dose. Hold Metformin. Monitor CBC and electrolytes. - Advance Directives Does patient have a Living Will: No Does patient have a Durable POA for Healthcare: No
[2021-09-11 20:31] VITALS: O2SAT 98
[2021-09-11] MEDS ORDERED: GLUCAGON 1 MG/VIAL IM PRN (20:43)
[2021-09-11] MEDS ORDERED: NA CHLORIDE 0.9% 1,000 ML IV SCH (20:43)
[2021-09-11] MEDS ORDERED: ONDANSETRON 4 MG/2 ML VIAL IV PRN (20:43)
[2021-09-11] MEDS ORDERED: MORPHINE 2 MG/ML SYR IV PRN (20:43)
[2021-09-11] MEDS ORDERED: Oxycodone HCl/Acetaminophen 1 TAB TAB PO PRN (20:43)
[2021-09-11] MEDS ORDERED: D50W 25 GM/50 ML SYRINGE IV PRN (20:43)
[2021-09-11] MEDS ORDERED: ACETAMINOPHEN 500 MG TAB PO PRN (20:43)
[2021-09-11] MEDS: INSULIN -REGULAR HUMAN 50 UNIT/0.5 ML ML SQ SCH (21:18)
[2021-09-11 22:11] VITALS: BMI 31.3
[2021-09-12 05:21] LABS: Basophils % 0.4 % (0-1.3); Hematocrit 34.5 % (36.0-45.0); Lymphocytes % 5.8 % (15.3-44.8); MPV 8.8 fL (7.6-11.3); RBC Red Blood Cell Count 3.82 M/uL (3.86-4.86)
[2021-09-12 05:42] LABS: Magnesium 2.4 mg/dL (1.8-2.4); Phosphorus 2.9 mg/dL (2.5-4.9); Potassium 5.2 mmol/L (3.5-5.1)
[2021-09-12] MEDS ORDERED: VANCOMYCIN 1.5 GM in NA CHLORIDE 0.9% 500 ML IVPB SCH (06:00)
[2021-09-12 06:35] LABS: Blood Morphology Comment NOT SEEN (NOT SEEN); Platelet Estimate ADEQ
[2021-09-12] MEDS: INSULIN -REGULAR HUMAN 50 UNIT/0.5 ML ML SQ SCH ×2 (08:28→12:32)
[2021-09-12] MEDS ORDERED: INSULIN GLARGINE 100 UNIT/ML SQ SCH (09:00)
[2021-09-12] MEDS ORDERED: Levofloxacin 750mg IV 750 MG/150 ML BAG IV SCH (09:00)
[2021-09-12] MEDS ORDERED: ENOXAPARIN 40 MG/0.4 ML SQ SCH (09:00)
--- NOTE | 2021-09-12 10:43 | P.CNS ---
Date of Consult: 09/11/21 Reason for Consult: knee Requesting Physician: Navdeep Arita Chief Complaint: Swollen left knee History of Present Illness: patient presented to the emergency department with complaints of left swollen knee, she has a past history of reeumatiod arthritis that has caused knee effusions that required arthrocentesis. she has no had any systemic signs or symptoms of infection such as fever, chills, aches, lethargy her knee has not been hot or red, no streaking. He knee was aspirated by Dr Arita and he gor 90 ml of yellow green fluid. only mildly decreased rom due to effusion thar resolved after arthrocentesis. The symptoms/episode began/occurred 5 day(s) ago. symptoms are alleviated by nothing. elevating leg, remaining still. Allergies acetaminophen [From Vicodin] Allergy (Verified 09/11/21 13:03) UNK codeine Allergy (Verified 09/11/21 13:03) UNK hydrocodone [From Vicodin] Allergy (Verified 09/11/21 13:03) UNK tramadol Allergy (Verified 09/11/21 13:03) UNK Home Medications: Acyclovir 400 mg PO BID 09/11/21 Amlodipine [Norvasc*] 5 mg PO BEDTIME 09/11/21 Atorvastatin Calcium 20 mg PO BEDTIME 09/11/21 Dexlansoprazole [Dexilant] 30 mg PO BEDTIME 09/11/21 Insulin Aspart [Novolog Flexpen] 0 mg SQ TID 09/11/21 Insulin Detemir [Levemir] 30 ml SQ DAILY 09/11/21 Lisinopril [Zestril] 20 mg PO BEDTIME 09/11/21 Metformin HCl 1,000 mg PO Q12HR 09/11/21 PARoxetine HCl [Paxil] 30 mg PO BEDTIME 09/11/21 Promethazine HCl 25 mg PO Q6HR PRN 09/11/21 Ropinirole HCl 0.5 mg PO TID 09/11/21 Sucralfate [Carafate] 1 gm PO TID 09/11/21 - Past Medical/Surgical History Diabetic: Yes -: Diabetes mellitus type 2 -: Hypertension -: Rheumatoid arthritis -: section -: Lumbar spinal surgery - Family History Mother Medical History: Diabetes Father Medical History: Heart disease - Social History Alcohol use: Yes CD- Drugs: No Place of Residence: Home Physical Examination Temp Pulse Resp BP Pulse Ox 96.9 F 87 18 109/49 L 97 09/12/21 08:00 09/12/21 08:00 09/12/21 08:00 09/12/21 08:00 09/12/21 08:00 General: Alert, In no apparent distress, Oriented x3 HEENT: Atraumatic, Normocephalic Neck: Supple Cardiovascular: No edema Capillary refill: <2 Seconds Gastrointestinal: Soft and benign Musculoskeletal: No clubbing, Swelling, Other (left knee not hot, no effusion now good range of motion, no lymphangitis, no erythema) Integumentary: No rashes Neurological: Sensation intact Laboratory Data (last 24 hrs) 09/11/21 12:05: Uric Acid 4.7 09/11/21 12:05: Sodium 138, Potassium 4.3, BUN 23 H, Creatinine 1.04, Glucose 363 H, Total Bilirubin 0.2, AST 10 L, ALT 26, Alkaline Phosphatase 90 09/11/21 12:05: WBC 18.90 H, Hgb 11.6 L, Hct 35.7 L, Plt Count 392 gm stain, 5-8 wbcs and no organisms seen knee fluid cell count fluid turbid, wbc 327, collor yellow, addendum said yellow-green I don't see a pending joint fluid culture, investigated there was no order for culture hey are starting it now.. blood coutures pending. - Problems (1) Effusion of knee joint, left Onset Date: ~09/07/21 Current Visit: Yes Status: Acute Plan: get culture of joint fluid, follow up in the office friday
[2021-09-12 12:31] VITALS: BP 134/75; TEMP 97.6
--- NOTE | 2021-09-12 13:21 | P.DS ---
Admission Date: 09/11/21 Discharge Date: 09/12/21 Disposition: ROUTINE DISCHARGE Discharge Condition: FAIR Reason for Admission: Swollen left knee - Problems (1) Septic arthritis Current Visit: Yes Status: Acute (2) Rheumatoid arthritis Current Visit: Yes Status: Acute (3) Diabetes mellitus type 2 in obese Current Visit: Yes Status: Acute (4) Hypertension Current Visit: Yes Status: Acute (5) Leukocytosis Current Visit: Yes Status: Acute Brief History of Present Illness: 55-year-old woman with a history of diabetes mellitus on insulin therapy, rheumatoid arthritis presented to the emergency department with a complaint of painful swollen left knee. Patient reports similar situations in the past and have had her left knee tapped for joint fluid about 3 years ago. She denied any fever. ED provider did a joint tap, noted to be turbid with numerous WBC. Septic arthritis suspected. Orthopedic surgeon-Dr. Killian informed recommended admission for IV antibiotics. Patient has leukocytosis. She does not meet criteria for sepsis. She was admitted for further management. Hospital Course: Patient admitted to the medical floor and treated with IV vancomycin and Levaquin for suspected septic arthritis. Gram stain of the joint fluid showed no organisms. Joint fluid culture is pending. Patient has no febrile symptoms, no increased pain in the affected joint. No decreased ROM. Patient seen by orthopedic surgeon who recommended antibiotics and follow-up in the office. Patient request to go home today. She is discharged with oral Augmentin to continue treatment for possible septic arthritis. Orthopedic surgery to follow- up result of the joint fluid culture. Vital Signs/Physical Exam: Temp Pulse Resp BP Pulse Ox 97.6 F 95 H 18 134/75 99 09/12/21 12:00 09/12/21 12:00 09/12/21 12:00 09/12/21 12:00 09/12/21 12:00 General: Alert, In no apparent distress, Oriented x3 HEENT: Mucous membr. moist/pink Neck: JVD not distended Respiratory: Clear to auscultation bilaterally, Normal air movement Cardiovascular: No edema, Regular rate/rhythm, Normal S1 S2 Gastrointestinal: Soft and benign, Non-distended, No tenderness Musculoskeletal: No tenderness, Swelling (Mild left knee swelling) Integumentary: No rashes, No erythema Neurological: Normal strength at 5/5 x4 extr Laboratory Data at Discharge: WBC 16.40 K/uL (4.3-10.9) H 09/12/21 04:46 Hgb 11.0 g/dL (12.0-15.0) L 09/12/21 04:46 Hct 34.5 % (36.0-45.0) L 09/12/21 04:46 Plt Count 378 K/uL (152-406) 09/12/21 04:46 Sodium 138 mmol/L (136-145) 09/12/21 04:46 Potassium 5.2 mmol/L (3.5-5.1) H 09/12/21 04:46 BUN 18 mg/dL (7-18) 09/12/21 04:46 Creatinine 0.93 mg/dL (0.55-1.3) 09/12/21 04:46 Glucose 462 mg/dL (74-106) H* 09/12/21 04:46 Uric Acid 4.7 mg/dL (2.6-6.0) 09/11/21 12:05 Phosphorus 2.9 mg/dL (2.5-4.9) 09/12/21 04:46 Magnesium 2.4 mg/dL (1.8-2.4) 09/12/21 04:46 Total Bilirubin 0.2 mg/dL (0.2-1.0) 09/11/21 12:05 AST 10 U/L (15-37) L 09/11/21 12:05 ALT 26 U/L (12-78) 09/11/21 12:05 Alkaline Phosphatase 90 U/L (45-117) 09/11/21 12:05 Home Medications: Acyclovir 400 mg PO BID 09/11/21 Amlodipine [Norvasc*] 5 mg PO BEDTIME 09/11/21 Atorvastatin Calcium 20 mg PO BEDTIME 09/11/21 Dexlansoprazole [Dexilant] 30 mg PO BEDTIME 09/11/21 Insulin Aspart [Novolog Flexpen] 0 mg SQ TID 09/11/21 Insulin Detemir [Levemir] 30 ml SQ DAILY 09/11/21 Lisinopril [Zestril] 20 mg PO BEDTIME 09/11/21 Metformin HCl 1,000 mg PO Q12HR 09/11/21 PARoxetine HCl [Paxil] 30 mg PO BEDTIME 09/11/21 Promethazine HCl 25 mg PO Q6HR PRN 09/11/21 Ropinirole HCl 0.5 mg PO TID 09/11/21 Sucralfate [Carafate] 1 gm PO TID 09/11/21 Amox/Clavulanate [Augmentin 875-125 Tab] 1 each PO BID #14 tab 09/12/21 New Medications: Amox/Clavulanate [Augmentin 875-125 Tab] 1 each PO BID #14 tab Diet: ADA Activity: Ad aminta Followup: NONE,NONE [Primary Care Provider] - Emiliano Medel MD [ACTIVE - CAN ADMIT] - 2-3 Days Time spent managing pt's care (in minutes): 35
[2021-09-13] MEDS ORDERED: VANCOMYCIN 1.5 GM in NA CHLORIDE 0.9% 500 ML IVPB SCH (06:00)
== END 2021-09-12 13:57 | disposition home or self-care (01) | DRG 550 ==
LOC: ER 08:23 → ERHOLD 16:06 → 2ND 20:18
PROVIDERS: ADMIT Internal Medicine; ATTEND Internal Medicine
PROC: 0S9D3ZX Drainage of Left Knee Joint, Percutaneous Approach, Diagnostic (ICD-10-PCS; principal; 2021-09-11)
DX: M00.9 Pyogenic arthritis, unspecified (principal); M25.462 Effusion, left knee; E11.65 Type 2 diabetes mellitus with hyperglycemia; D72.829 Elevated white blood cell count, unspecified; M06.9 Rheumatoid arthritis, unspecified; E78.5 Hyperlipidemia, unspecified; I10 Essential (primary) hypertension; E66.9 Obesity, unspecified; Z68.31 Body mass index [BMI] 31.0-31.9, adult; Z72.89 Other problems related to lifestyle; Z88.5 Allergy status to narcotic agent; Z79.4 Long term (current) use of insulin; Z79.84 Long term (current) use of oral hypoglycemic drugs; Z20.822 Contact with and (suspected) exposure to COVID-19
CPT/HCPCS: 36415; 80048; 80053; 82945; 82947; 83615; 83735; 84100; 84157; 84550; 85025; 87040; 87205; 89050; 89060; 96361; 96365; 96366; 96375; 99284; J0690; J1650; J2405; J2930; J3370; J7030; J7040; J7512; U0003

== ENCOUNTER 2021-10-03 21:35 | Emergency (ER) | payer OTHER ==
--- OUTSIDE RECORDS SUMMARY | 2021-10-03 21:38 | XMS REPORT | Continuity of Care Document ---
:1965 Author Organization [facility] Address Count includes the [facility] [address] Esquivel [address] [place] [id number] Care Team Providers Name Role Phone Unavailable Unavailable Unavailable Problems This patient has no known problems. Allergies, Adverse Reactions, Alerts This patient has no known allergies or adverse reactions. Medications This patient has no known medications. Procedures This patient has no known procedures. Encounters Start End Encounter Admission Attending Care Care Encounter Source Date/Time Date/Time Type Type Clinicians Facility Department ID 2020-05-17 2020-05-17 Outpatient [facility] [id number] [place] 00:00:00 00:00:00 Health 2020-04-12 2020-04-12 Outpatient [facility] [id number] [place] 00:00:00 00:00:00 Health 2020-01-26 2020-01-26 Outpatient [facility] [id number] [place] 00:00:00 00:00:00 Health 2019-11-16 2019-11-16 Outpatient [facility] [id number] [place] 07:27:33 07:27:33 Health 2019-11-10 2019-11-10 Outpatient [facility] [id number] [place] 00:00:00 00:00:00 Health 2019-10-29 2019-10-29 Outpatient [facility] [id number] [place] 07:36:58 07:36:58 Health 2019-10-29 2019-10-29 Outpatient [facility] [id number] [place] 00:00:00 00:00:00 Health 2019-10-29 2019-10-29 Outpatient [facility] [id number] [place] 00:00:00 00:00:00 Health 2019-10-27 2019-10-27 Outpatient [facility] [id number] [place] 00:00:00 00:00:00 Health 2019-10-20 2019-10-20 Outpatient [facility] [id number] [place] 00:00:00 00:00:00 Health 2019-09-22 2019-09-22 Outpatient [facility] [id number] [place] 09:01:21 09:01:21 [facility] 2019-06-22 2019-06-22 Outpatient [facility] [id number] [place] 00:00:00 00:00:00 [facility] 2019-06-10 2019-06-10 Outpatient [facility] [id number] [place] 00:00:00 00:00:00 [facility] 2019-06-07 2019-06-07 Outpatient [facility] [id number] [place] 00:00:00 00:00:00 [facility] 2019-06-03 2019-06-03 Outpatient [facility] [id number] [place] 00:00:00 00:00:00 [facility] 2019-06-03 2019-06-03 Outpatient [facility] [id number] [place] 00:00:00 00:00:00 [facility] 2019-05-26 2019-05-26 Outpatient [facility] [id number] [place] 00:00:00 00:00:00 [facility] 2019-05-24 2019-05-24 Outpatient [facility] [id number] [place] 00:00:00 00:00:00 [facility] 2019-05-21 2019-05-21 Outpatient [facility] [id number] [place] 14:40:19 14:40:19 [facility] 2019-05-21 2019-05-21 Outpatient [facility] [id number] [place] 00:00:00 00:00:00 [facility] 2019-05-21 2019-05-21 Outpatient [facility] [id number] [place] 00:00:00 00:00:00 [facility] 2019-05-21 2019-05-21 Outpatient [facility] [id number] [place] 00:00:00 00:00:00 [facility] 2019-05-21 2019-05-21 Outpatient [facility] [id number] [place] 00:00:00 00:00:00 [facility] 2019-05-20 2019-05-20 Outpatient [facility] [id number] [place] 15:33:18 15:33:18 [facility] 2019-05-20 2019-05-20 Outpatient [facility] [id number] [place] 14:24:58 14:24:58 [facility] 2019-05-20 2019-05-20 Outpatient [facility] [id number] [place] 14:02:09 14:02:09 [facility] 2019-05-20 2019-05-20 Outpatient [facility] [id number] [place] 00:00:00 00:00:00 [facility] 2019-05-20 2019-05-20 Outpatient [facility] [id number] [place] 00:00:00 00:00:00 [facility] 2019-05-19 2019-05-19 Outpatient [facility] [id number] [place] 00:00:00 00:00:00 [facility] 2019-05-19 2019-05-19 Outpatient [facility] [id number] [place] 00:00:00 00:00:00 [facility] 2019-05-13 2019-05-13 Outpatient [facility] [id number] [place] 15:04:47 15:04:47 [facility] 2019-05-06 2019-05-06 Outpatient [facility] [id number] [place] 00:00:00 00:00:00 [facility] 2019-05-05 2019-05-05 Outpatient [facility] [id number] [place] 09:22:40 09:22:40 [facility] 2019-05-03 2019-05-03 Emergency [facility] [id number] [place] 01:42:35 01:42:35 [facility] 2019-05-02 2019-05-02 Emergency [facility] [id number] [place] 19:52:20 19:52:20 [facility] 2019-04-19 2019-04-19 Outpatient [facility] [id number] [place] 12:49:16 12:49:16 [facility] 2019-04-19 2019-04-19 Outpatient [facility] [id number] [place] 12:09:45 12:09:45 [facility] 2019-04-19 2019-04-19 Outpatient [facility] [id number] [place] 11:18:49 11:18:49 [facility] 2019-04-19 2019-04-19 Outpatient [facility] [id number] [place] 10:14:27 10:14:27 [facility] 2019-04-19 2019-04-19 Outpatient [facility] [id number] [place] 00:00:00 00:00:00 [facility] 2019-04-19 2019-04-19 Outpatient [facility] [id number] [place] 00:00:00 00:00:00 [facility] 2018-06-22 2018-06-22 Outpatient [facility] [id number] [place] 00:00:00 00:00:00 [facility] 2018-06-22 2018-06-22 Outpatient [facility] [id number] [place] 00:00:00 00:00:00 [facility] 2018-06-19 2018-06-19 Outpatient [facility] [id number] [place] 13:03:23 13:03:23 [facility] 2018-06-19 2018-06-19 Outpatient [facility] [id number] [place] 00:00:00 00:00:00 [facility] 2018-06-19 2018-06-19 Outpatient [facility] [id number] [place] 00:00:00 00:00:00 [facility] 2018-06-11 2018-06-11 Outpatient [facility] [id number] [place] 00:00:00 00:00:00 [facility] 2018-06-10 2018-06-10 Outpatient [facility] [id number] [place] 00:00:00 00:00:00 [facility] 2018-06-10 2018-06-10 Outpatient [facility] [id number] [place] 00:00:00 00:00:00 [facility] 2018-06-08 2018-06-08 Outpatient [facility] [id number] [place] 00:00:00 00:00:00 [facility] 2018-06-05 2018-06-05 Outpatient [facility] [id number] [place] 11:52:24 11:52:24 [facility] 2018-06-05 2018-06-05 Outpatient [facility] [id number] [place] 11:36:28 11:36:28 [facility] 2018-06-05 2018-06-05 Outpatient [facility] [id number] [place] 11:16:17 11:16:17 [facility] 2018-06-05 2018-06-05 Outpatient [facility] [id number] [place] 10:37:43 10:37:43 [facility] 2018-06-05 2018-06-05 Outpatient [facility] [id number] [place] 08:49:22 08:49:22 [facility] 2018-06-05 2018-06-05 Outpatient [facility] [id number] [place] 00:00:00 00:00:00 [facility] 2018-05-20 2018-05-20 Outpatient [facility] [id number] [place] 00:00:00 00:00:00 [facility] 2018-05-13 2018-05-13 Outpatient [facility] [id number] [place] 00:00:00 00:00:00 [facility] 2018-05-13 2018-05-13 Outpatient [facility] [id number] [place] 00:00:00 00:00:00 [facility] 2018-05-13 2018-05-13 Outpatient [facility] [id number] [place] 00:00:00 00:00:00 [facility] 2018-05-13 2018-05-13 Outpatient [facility] [id number] [place] 00:00:00 00:00:00 [facility] 2018-05-13 2018-05-13 Outpatient [facility] [id number] [place] 00:00:00 00:00:00 [facility] 2018-04-22 2018-04-22 Outpatient [facility] [id number] [place] 12:31:20 12:31:20 [facility] 2018-04-22 2018-04-22 Outpatient [facility] [id number] [place] 10:45:31 10:45:31 [facility] 2018-04-22 2018-04-22 Outpatient [facility] [id number] [place] 00:00:00 00:00:00 [facility] 2017-09-29 2017-09-29 Outpatient [facility] [id number] [place] 00:00:00 00:00:00 [facility] 2017-09-29 2017-09-29 Outpatient [facility] [id number] [place] 00:00:00 00:00:00 [facility] 2017-09-19 2017-09-19 Outpatient [facility] [id number] [place] 00:00:00 00:00:00 [facility] 2017-09-12 2017-09-12 Outpatient [facility] [id number] [place] 00:00:00 00:00:00 [facility] 2017-09-10 2017-09-10 Outpatient [facility] [id number] [place] 15:10:31 15:10:31 [facility] 2017-09-10 2017-09-10 Outpatient [facility] [id number] [place] 13:58:23 13:58:23 [facility] 2017-08-01 2017-08-01 Outpatient [facility] [id number] [place] 00:00:00 00:00:00 [facility] 2017-07-15 2017-07-15 Outpatient [facility] [id number] [place] 00:00:00 00:00:00 [facility] 2017-07-11 2017-07-11 Outpatient [facility] [id number] [place] 00:00:00 00:00:00 [facility] 2017-07-01 2017-07-01 Outpatient [facility] [id number] [place] 13:02:14 13:02:14 [facility] 2017-07-01 2017-07-01 Outpatient [facility] [id number] [place] 11:47:18 11:47:18 [facility] 2017-06-30 2017-06-30 Outpatient [facility] [id number] [place] 07:49:07 07:49:07 [facility] 2017-06-04 2017-06-04 Outpatient [facility] [id number] [place] 10:05:56 10:05:56 [facility] 2017-05-06 2017-05-06 Emergency [facility] [id number] [place] 20:07:21 20:07:21 [facility] 2017-05-05 2017-05-05 Outpatient [facility] [id number] [place] 14:06:57 14:06:57 Health 2017-05-05 2017-05-05 Outpatient [facility] [id number] [place] 12:56:21 12:56:21 Health 2017-04-25 2017-04-25 Outpatient [facility] [id number] [place] [address] 00:00:00 00:00:00 Health Results This patient has no known results.
[2021-10-03] MEDS ORDERED: MEPERIDINE HCL 25 MG/ML SYR ONE (22:06)
[2021-10-03 22:24] LABS: Absolute Lymphocytes (CBC) 1.7 K/uL (0.7-4.9); Basophils % 0.5 % (0-1.3); Hematocrit 38.5 % (36.0-45.0); Lymphocytes % 20.9 % (15.3-44.8); RBC Red Blood Cell Count 4.33 M/uL (3.86-4.86)
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
[2021-10-04 01:23] VITALS: TEMP 98.1
[2021-10-04 01:26] VITALS: BP 142/83; O2SAT 99
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
== END 2021-10-04 00:27 | disposition home or self-care (01) ==
LOC: ER 21:35
DX: R07.9 Chest pain, unspecified (principal); V47.5XXA Car driver injured in collision with fixed or stationary object in traffic accident, initial encounter; I10 Essential (primary) hypertension; E11.9 Type 2 diabetes mellitus without complications; Z88.0 Allergy status to penicillin; Z88.5 Allergy status to narcotic agent
CPT/HCPCS: 85025; 80048; 36415; 82565; 70450; 72125; 71260; 74177; 96374; 99285; Q9967; J2175